=== PATIENT | female | born 1960 | race Caucasian/White ===

== ENCOUNTER 2016-12-08 10:16 | Emergency (ER) | payer BC, OTHER ==
[~2016-12-08] VITALS: Ht 165.1 cm; Wt 94.5 kg
[2016-12-08 10:18] VITALS: BP 149/74; PULSE 80; RESP 20; TEMP 97.9; O2SAT 95
[2016-12-08 10:41] VITALS: RESP 16; O2SAT 98
[2016-12-08] MEDS ORDERED: DAPA1TAB PO (10:41)
[2016-12-08] MEDS ORDERED: LEVO.2 PO (10:41)
[2016-12-08] MEDS ORDERED: MULT1TAB84 PO (10:41)
[2016-12-08] MEDS ORDERED: DULA0.5I SQ (10:41)
[2016-12-08] MEDS ORDERED: [UNRECOGNIZED DRUG - CODE] PO (10:41)
[2016-12-08] MEDS ORDERED: ERGO1CAP10 PO (10:41)
[2016-12-08] MEDS ORDERED: GLUM500T PO (10:41)
[2016-12-08] MEDS ORDERED: LISI-515 PO (10:41)
[2016-12-08] MEDS ORDERED: LIDOCAINE VISCOUS 2% SOLN 15 ML UDC SWISH-SWAL ONE (10:45)
[2016-12-08] MEDS ORDERED: SODIUM CHLORIDE 0.9% FLUSH 5 ML FLUSH IVF PRN (10:45)
[2016-12-08] MEDS ORDERED: ALUMINUM/MAGNESIUM/SIMETH 30 ML CUP PO ONE (10:45)
[2016-12-08] MEDS ORDERED: ATROPINE/SCOPOLAM/HYOSCYAM/PB ELIXIR 10 ML CUP PO ONE (10:45)
[2016-12-08 11:14] LABS: AUTOMATED NEUTROPHIL # 4.5 TH/MM3 (1.8-7.7); BASOPHIL % 0.4 % (0.0-2.0); EOSINOPHIL # 0.2 TH/MM3 (0-0.4); EOSINOPHIL % 2.3 % (0.0-4.0); HEMO FLAGS DIFF FINAL; LYMPH % 25.8 % (9.0-44.0); LYMPHOCYTE # 1.8 TH/MM3 (1.0-4.8); MEAN CELL VOLUME 84.7 FL (80.0-100.0); MEAN CORPUSCULAR HEMOGLOBIN 29.4 PG (27.0-34.0); MEAN CORPUSCULAR HGB CONC 34.7 % (32.0-36.0); MONO % 7.9 % (0.0-8.0); NEUT % 63.6 % (16.0-70.0); PLATELET COUNT 264 TH/MM3 (150-450); RED BLOOD COUNT 4.96 MIL/MM3 (4.00-5.30); RED CELL DISTRIBUTION WIDTH 13.1 % (11.6-17.2)
[2016-12-08 11:31] LABS: ALT (GPT) 37 U/L (10-53); ANION GAP 13 MEQ/L (5-15); AST (GOT) 30 U/L (15-37); BICARBONATE 22.5 MEQ/L (21.0-32.0); BLOOD UREA NITROGEN 8 MG/DL (7-18); CHLORIDE 105 MEQ/L (98-107); GLOMERULAR FILTRATION RATE 73 ML/MIN (>89); POTASSIUM 3.7 MEQ/L (3.5-5.1); SODIUM (NA) 140 MEQ/L (136-145)
[2016-12-08 11:36] LABS: ALKALINE PHOSPHATASE 74 U/L (45-117); TOTAL BILIRUBIN ADULT 0.6 MG/DL (0.2-1.0)
--- NOTE | 2016-12-08 12:07 | PD ---
HPI Chief Complaint: Abdominal Pain Time Seen by Provider: 10:32 Travel History International Travel<30 days: Yes Contact w/Intl Traveler<30days: Yes Name of Country Traveled to: [facility] Traveled to known affect area: No History of Present Illness HPI This is a 56-year-old female who presents to the emergency department with epigastric abdominal discomfort that's been present for 10 days, intermittent, worse immediately after eating described as a burning. She denies any associated nausea, vomiting, fevers or chills. She thinks it's her pancreas and she thinks has pancreatic irritation related to her diabetes. She's never had pancreatitis diagnosed before. She does say that she's had some stools that float. PFSH Past Medical History Cardiovascular Problems: Yes (PT STATES SHE MAY HAVE A BLOCKAGE) Diabetes: Yes (TYPE 2) Patient Takes Glucophage: No Diminished Hearing: No Thyroid Disease: Yes (hypo) Tetanus Vaccination: Unknown Influenza Vaccination: No ?: Not Past Surgical History Cholecystectomy: Yes Social History Alcohol Use: No Tobacco Use: No Substance Use: No Allergies-Medications (Allergen,Severity, Reaction): Coded Allergies: Ancef (Verified Allergy, Intermediate, HIVES, 12/08/16) Reported Meds & Prescriptions Reported Meds & Active Scripts Active Reported Multivitamin Adults (Multiple Vitamins W/ Minerals) 1 Tab 1 Tab PO DAILY Pancreatin 325 Mg Tab 500 Mg PO BID Trulicity Inj (Dulaglutide Inj) 1.5 Mg/0.5 Ml Pen 1.5 Mg SQ Q7D Farxiga (Dapagliflozin) 5 Mg Tab 5 Mg PO DAILY Glumetza (Metformin HCl) 500 Mg Manish 500 Mg PO DAILY With evening meal Vitamin D (Ergocalciferol) 50,000 Unit Cap 35 Units PO Q7D Lisinopril 20 Mg Tab 20 Mg PO DAILY Synthroid (Levothyroxine Sodium) 200 Mcg Tab 200 Mcg PO DAILY Review of Systems Except as stated in HPI: all other systems reviewed are Neg Physical Exam Narrative GENERAL:Well appearing, no acute distress SKIN: Warm and dry. HEAD: Atraumatic. Normocephalic. EYES: Pupils equal and round. No injection or drainage. ENT: Moist mucous membranes NECK: Trachea midline. CARDIOVASCULAR: Regular rate and rhythm. No murmur appreciated. RESPIRATORY: Clear to auscultation. Breath sounds equal bilaterally. GASTROINTESTINAL: Abdomen soft, moderately tender to palpation in the epigastrium with no rebound or guarding. MUSCULOSKELETAL: No obvious deformities. NEUROLOGICAL: Awake and alert. No obvious cranial nerve deficits. Moving all extremities. PSYCHIATRIC: Appropriate mood and affect; insight and judgment normal. Data Data Last Documented VS Vital Signs Date Time Temp Pulse Resp B/P Pulse Ox O2 Delivery O2 Flow Rate FiO2 12/08/16 10:41 16 98 Room Air 12/08/16 10:18 97.9 80 149/74 Orders Complete Blood Count With Diff (12/08/16 10:38) Comprehensive Metabolic Panel (12/08/16 10:38) Lipase (12/08/16 10:38) Urinalysis - C+S If Indicated (12/08/16 10:38) Iv Access Insert/Monitor (12/08/16 10:38) Ecg Monitoring (12/08/16 10:38) Oximetry (12/08/16 10:38) Sodium Chloride 0.9% Flush (Ns Flush) (12/08/16 10:45) Electrocardiogram (12/08/16 10:38) Troponin I (12/08/16 10:38) Al-Mag Hy-Si 40-40-4 Mg/Ml Liq (Mag-Al P (12/08/16 10:45) Lidocaine 2% Viscous (Xylocaine 2% Visco (12/08/16 10:45) Jceey-Tdnryi-Pitbge-Pb Liq ( Liq (12/08/16 10:45) Labs Laboratory Tests Test 12/08/16 10:45 White Blood Count 7.0 TH/MM3 Red Blood Count 4.96 MIL/MM3 Hemoglobin 14.6 GM/DL Hematocrit 42.0 % Mean Corpuscular Volume 84.7 FL Mean Corpuscular Hemoglobin 29.4 PG Mean Corpuscular Hemoglobin 34.7 % Concent Red Cell Distribution Width 13.1 % Platelet Count 264 TH/MM3 Mean Platelet Volume 9.1 FL Neutrophils (%) (Auto) 63.6 % Lymphocytes (%) (Auto) 25.8 % Monocytes (%) (Auto) 7.9 % Eosinophils (%) (Auto) 2.3 % Basophils (%) (Auto) 0.4 % Neutrophils # (Auto) 4.5 TH/MM3 Lymphocytes # (Auto) 1.8 TH/MM3 Monocytes # (Auto) 0.6 TH/MM3 Eosinophils # (Auto) 0.2 TH/MM3 Basophils # (Auto) 0.0 TH/MM3 CBC Comment DIFF FINAL Differential Comment Sodium Level 140 MEQ/L Potassium Level 3.7 MEQ/L Chloride Level 105 MEQ/L Carbon Dioxide Level 22.5 MEQ/L Anion Gap 13 MEQ/L Blood Urea Nitrogen 8 MG/DL Creatinine 0.81 MG/DL Estimat Glomerular Filtration 73 ML/MIN Rate Random Glucose 75 MG/DL Calcium Level 9.4 MG/DL Total Bilirubin 0.6 MG/DL Aspartate Amino Transf 30 U/L (AST/SGOT) Alanine Aminotransferase 37 U/L (ALT/SGPT) Alkaline Phosphatase 74 U/L Troponin I LESS THAN 0.02 NG/ML Total Protein 7.5 GM/DL Albumin 3.9 GM/DL Lipase 126 U/L MDM Medical Decision Making Medical Screen Exam Complete: Yes Emergency Medical Condition: Yes Interpretation(s) afebrile, no tachycardia, moderate hypertension no leukocytosis electrolytes are reassuring lipase 126 urinalysis: no infection Differential Diagnosis gastritis, peptic ulcer disease, pancreatitis, myocardial infarction Narrative Course This is a 56 year old female who presents to the emergency department with epigastric abdominal discomfort for 10 days. She was placed on a monitor and an IV was established. Pt. was given a GI cocktail. Labs are reassuring with a normal lipase. I don't suspect a surgical etiology of her symptoms. I suspect the patient has gastritis. Pt. can follow up with a farm equipment operator as an outpatient. Diagnosis Primary Impression: Gastritis Qualified Code: K29.00 - Acute gastritis without hemorrhage, unspecified gastritis type Patient Instructions: General Instructions Additional Instructions: If you develop severe or worsening abdominal pain, fever>100.4, persistent vomiting or inability to eat or drink return to the emergency department immediately. Follow up with your primary care physician in 1-2 days for a check-up. Med/Other Pt SpecificInfo: Prescription(s) given Scripts Ranitidine (Zantac)150 Mg [id number] Mg PO BID #60 TAB Ref 0 Prov:Terri Rothman MD 12/08/16 Disposition: 01 DISCHARGE HOME Condition: Stable Terri Rothman MD Dec 08, 2016 12:07
[2016-12-08] MEDS ORDERED: ZANT150T2 PO (12:14)
[2016-12-08 12:16] LABS: BLOOD, URINE NEG (NEG); COMMENT (UR) CULT NOT INDICATED; CULTURE IF INDICATED CULT NOT INDICATED; GLUCOSE,URINE 150 mg/dL (NEG); KETONE, URINE 80 mg/dL (NEG); MUCUS URINE FEW /lpf (OCC); NITRITE,URINE NEG (NEG); SQUAMOUS EPITHELIAL CELL URINE <1 /hpf (0-5); URINE COLOR LIGHT-YELLOW (YELLW/STRAW)
--- NOTE | 2016-12-08 21:42 | EKG ---
Date Performed: 12/08/2016 Time Performed: 10:46:22 PTAGE: 56 years EKG: Sinus rhythm MARKED LEFT AXIS DEVIATION MODERATE INTRAVENTRICULAR CONDUCTION DELAY VOLTAGE CRITERIA FOR LVH ABNOR MAL ECG PREVIOUS TRACING : 09/04/2004 08.21 Compared to the previous tracing, IVCD now present DOCTOR: Cresencio Lucio Interpretating Date/Time 12/08/2016 21:40:58
== END 2016-12-08 13:00 | disposition home or self-care (01) ==
LOC: NEPE 10:16
DX: K29.00 Acute gastritis without bleeding (principal); E11.9 Type 2 diabetes mellitus without complications; Z79.84 Long term (current) use of oral hypoglycemic drugs
CPT/HCPCS: 80053; 81001; 83690; 84484; 85025; 93005

== ENCOUNTER 2017-10-09 07:01 | Observation (INO) | payer BC ==
[2017-10-09] VITALS (7 sets, daily range): BP systolic 128–180; BP diastolic 71–95; PULSE 66–78; RESP 16–18; TEMP 97.2–97.8; O2SAT 96–98
[~2017-10-09] VITALS: Ht 166.4 cm; Wt 101.0 kg
[~2017-10-09 07:01] MED LIST: DAPA1TAB PO; DULA0.5I SQ; ERGO1CAP10 PO; GLUM500T PO; LEVO.2 PO; LISI-515 PO; MULT1TAB84 PO; ZANT150T2 PO; [UNRECOGNIZED DRUG - CODE] PO
[2017-10-09] MEDS ORDERED: ASPIRIN 81 MG CHEW TAB PO ONE (07:30)
[2017-10-09] MEDS ORDERED: SODIUM CHLORIDE 0.9% FLUSH 10 ML FLUSH IVF PRN (07:30)
[2017-10-09] MEDS ORDERED: MORPHINE SULFATE 4 MG/ML INJ IV PUSH ONE (07:30)
--- NOTE | 2017-10-09 07:32 | PD ---
HPI Chief Complaint: Chest Pain Time Seen by Provider: 07:13 Travel History International Travel<30 days: No Contact w/Intl Traveler<30days: No Traveled to known affect area: No History of Present Illness HPI Patient is a 57 year old female who comes in complaining of chest pain radiating to her back. She says it woke her up from sleep 4 hours ago. She says she is unable to describe the pain. She says she has never had this pain before. She says the pain has been constant since it started. Nothing seems to make the pain better or worse. She denies shortness of breath, nausea or vomiting. She is concerned about her thyroid. She says she was told her TSH was 12, but her T3 and T4 were normal. She was advised to see endocrinology, but has not done so yet. She believes this is the cause of her pain. PFSH Past Medical History Cardiovascular Problems: Yes (nuc stress test 04/02) Diabetes: Yes Patient Takes Glucophage: Yes Diminished Hearing: No Hypertension: Yes Thyroid Disease: Yes (hypo) Influenza Vaccination: No Tubal Ligation: Yes Past Surgical History Cholecystectomy: Yes Social History Alcohol Use: No Tobacco Use: No Substance Use: No Allergies-Medications (Allergen,Severity, Reaction): Coded Allergies: cefazolin (Unverified Allergy, Intermediate, HIVES, 05/31/17) adhesive tape (Verified Allergy, Unknown, 10/09/17) Reported Meds & Prescriptions Reported Meds & Active Scripts Active Reported Trulicity Inj (Dulaglutide Inj) 1.5 Mg/0.5 Ml Pen 1.5 Mg SQ Q7D Farxiga (Dapagliflozin) 5 Mg Tab 5 Mg PO DAILY Glumetza (Metformin HCl) 500 Mg Manish 500 Mg PO DAILY With evening meal Lisinopril 20 Mg Tab 20 Mg PO DAILY Review of Systems Except as stated in HPI: all other systems reviewed are Neg General / Constitutional: No: Fever, Chills Eyes: No: Blurred Vision HENT: No: Headaches, Lightheadedness Cardiovascular: Positive: Chest Pain or Discomfort Respiratory: No: Cough, Shortness of Breath Gastrointestinal: No: Nausea, Vomiting Musculoskeletal: No: Myalgias, Edema Skin: No Rash, No Change in Pigmentation Neurologic: No: Weakness, Dizziness Physical Exam Narrative GENERAL: Awake and alert, in no acute distress. SKIN: Focused skin assessment warm/dry. HEAD: Atraumatic. Normocephalic. EYES: Pupils equal and round. No scleral icterus. EOMI. ENT: Mucous membranes pink and moist. NECK: Trachea midline. No JVD. CARDIOVASCULAR: Regular rate and rhythm. No murmur appreciated. RESPIRATORY: No accessory muscle use. Clear to auscultation. Breath sounds equal bilaterally. GASTROINTESTINAL: Abdomen soft, non-tender, nondistended. MUSCULOSKELETAL: No obvious deformities. No clubbing. No cyanosis. No edema. No calf tenderness. NEUROLOGICAL: Awake and alert. No obvious cranial nerve deficits. Motor grossly within normal limits. Normal speech. PSYCHIATRIC: Appropriate mood and affect; insight and judgment normal. Data Data Last Documented VS Vital Signs Date Time Temp Pulse Resp B/P (MAP) Pulse Ox O2 Delivery O2 Flow Rate FiO2 10/09/17 07:39 142/78 (99) 141/82 (101) 10/09/17 07:20 97 Room Air 10/09/17 07:16 97.8 74 16 Orders Orders Complete Blood Count With Diff (10/09/17 07:18) Comprehensive Metabolic Panel (10/09/17 07:18) Prothrombin Time / Inr (Pt) (10/09/17 07:18) Act Partial Throm Time (Ptt) (10/09/17 07:18) Troponin I (10/09/17 07:18) Lipase (10/09/17 07:18) Chest, Single Ap (10/09/17 07:18) Ecg Monitoring (10/09/17 07:18) Bilateral Bp Monitoring (10/09/17 07:18) Iv Access Insert/Monitor (10/09/17 07:18) Oximetry (10/09/17 07:18) Oxygen Administration (10/09/17 07:18) Aspirin Chew (Aspirin Chew) (10/09/17 07:30) Morphine Inj (Morphine Inj) (10/09/17 07:30) Sodium Chloride 0.9% Flush (Ns Flush) (10/09/17 07:30) Thyroid Stimulating Hormone (10/09/17 07:18) Free T3 (10/09/17 07:18) Thyroxine (T4) (10/09/17 07:18) Electrocardiogram (10/09/17 07:09) Admit Order (Ed Use Only) (10/09/17 ) Labs Laboratory Tests Test 10/09/17 07:36 White Blood Count 7.0 TH/MM3 Red Blood Count 4.58 MIL/MM3 Hemoglobin 13.3 GM/DL Hematocrit 39.4 % Mean Corpuscular Volume 86.1 FL Mean Corpuscular Hemoglobin 29.0 PG Mean Corpuscular Hemoglobin Concent 33.7 % Red Cell Distribution Width 12.7 % Platelet Count 247 TH/MM3 Mean Platelet Volume 7.9 FL Neutrophils (%) (Auto) 53.8 % Lymphocytes (%) (Auto) 34.1 % Monocytes (%) (Auto) 7.7 % Eosinophils (%) (Auto) 4.0 % Basophils (%) (Auto) 0.4 % Neutrophils # (Auto) 3.8 TH/MM3 Lymphocytes # (Auto) 2.4 TH/MM3 Monocytes # (Auto) 0.5 TH/MM3 Eosinophils # (Auto) 0.3 TH/MM3 Basophils # (Auto) 0.0 TH/MM3 CBC Comment DIFF FINAL Differential Comment Prothrombin Time 9.6 SEC Prothromb Time International Ratio 0.9 RATIO Activated Partial Thromboplast Time 27.9 SEC Blood Urea Nitrogen 8 MG/DL Creatinine 0.78 MG/DL Random Glucose 117 MG/DL Total Protein 7.0 GM/DL Albumin 3.2 GM/DL Calcium Level 8.3 MG/DL Alkaline Phosphatase 89 U/L Aspartate Amino Transf (AST/SGOT) 20 U/L Alanine Aminotransferase (ALT/SGPT) 18 U/L Total Bilirubin 0.4 MG/DL Sodium Level 139 MEQ/L Potassium Level 3.3 MEQ/L Chloride Level 103 MEQ/L Carbon Dioxide Level 29.9 MEQ/L Anion Gap 6 MEQ/L Estimat Glomerular Filtration Rate 76 ML/MIN Magnesium Level 2.0 MG/DL Troponin I LESS THAN 0.02 NG/ML Lipase 131 U/L Thyroxine (T4) 5.9 MCG/DL Free Triiodothyronine (T3) pg/dL 2.38 PG/ML Thyroid Stimulating Hormone 3rd Gen 18.300 uIU/ML MDM Medical Decision Making Medical Screen Exam Complete: Yes Emergency Medical Condition: Yes Medical Record Reviewed: Yes Interpretation(s) ECG shows NSR at 76, no ST elevation or depression, LVH. Differential Diagnosis ACS vs pneumonia vs pancreatitis Narrative Course Patient is a 57 year old female who comes in complaining of chest pain that radiates to her back. Exam shows no acute abnormalities. IV established, labs sent. Given Aspirin. Labs show elevated TSH, but T3 and T4 within normal limits (this is know to patient, not a new finding). Troponin is negative. CXR shows no acute abnormalities. Placed in chest pain center for further management. Diagnosis Primary Impression: Chest pain Qualified Codes: R07.9 - Chest pain, unspecified Admitting Information Admitting Physician Requests: Loree Freire MD Oct 09, 2017 07:32
[2017-10-09 07:43] LABS: AUTOMATED NEUTROPHIL # 3.8 TH/MM3 (1.8-7.7); BASOPHIL % 0.4 % (0.0-2.0); EOSINOPHIL # 0.3 TH/MM3 (0-0.4); HEMATOCRIT 39.4 % (35.0-46.0); HEMOGLOBIN 13.3 GM/DL (11.6-15.3); LYMPH % 34.1 % (9.0-44.0); LYMPHOCYTE # 2.4 TH/MM3 (1.0-4.8); MEAN CELL VOLUME 86.1 FL (80.0-100.0); MEAN CORPUSCULAR HGB CONC 33.7 % (32.0-36.0); MEAN PLATELET VOLUME 7.9 FL (7.0-11.0); MONO % 7.7 % (0.0-8.0); MONOCYTE # 0.5 TH/MM3 (0-0.9); NEUT % 53.8 % (16.0-70.0); PLATELET COUNT 247 TH/MM3 (150-450); RED BLOOD COUNT 4.58 MIL/MM3 (4.00-5.30); RED CELL DISTRIBUTION WIDTH 12.7 % (11.6-17.2)
[2017-10-09 07:51] LABS: CHLORIDE 103 MEQ/L (98-107); SODIUM (NA) 139 MEQ/L (136-145)
[2017-10-09 07:55] LABS: ALBUMIN 3.2 GM/DL (3.4-5.0); BICARBONATE 29.9 MEQ/L (21.0-32.0); BLOOD UREA NITROGEN 8 MG/DL (7-18); CALCIUM 8.3 MG/DL (8.5-10.1); GLUCOSE,RANDOM 117 MG/DL (74-106); LIPASE 131 U/L (73-393)
[2017-10-09 07:56] LABS: INTERNATIONAL NORMALIZED RATIO 0.9 RATIO; PROTHROMBIN TIME - PATIENT 9.6 SEC (9.8-11.6)
[2017-10-09 07:58] LABS: ALT (GPT) 18 U/L (10-53); AST (GOT) 20 U/L (15-37); CREATININE 0.78 MG/DL (0.50-1.00); GLOMERULAR FILTRATION RATE 76 ML/MIN (>89)
--- NOTE | 2017-10-09 07:59 | RADRPT ---
EXAM DATE/TIME: 10/09/2017 07:24 [facility] COMPARISON: No previous studies available for comparison. INDICATIONS : Chest pain MEDICAL HISTORY : Diabetes mellitus type II. SURGICAL HISTORY : None. ENCOUNTER: Initial ACUITY: 1 day PAIN SCORE: 5/10 LOCATION: Bilateral chest FINDINGS: There is mild interstitial prominence with minimal cardiomegaly. There is either consolidation or pl eural effusion.. Osseous structures are intact. CONCLUSION: Mild interstitial prominence Jose Kirk MD FACR on October 09, 2017 at 7:57 Board Certified Radiologist. This report was verified electronically.
[2017-10-09 08:00] LABS: TOTAL BILIRUBIN ADULT 0.4 MG/DL (0.2-1.0)
[2017-10-09 08:01] LABS: ALKALINE PHOSPHATASE 89 U/L (45-117)
[2017-10-09 08:03] LABS: TROPONIN I LESS THAN 0.02 NG/ML (0.02-0.05)
[2017-10-09] MEDS ORDERED: SODIUM CHLOR 0.9% 1000 ML INJ 1,000 ML IV SCH (09:09)
[2017-10-09] MEDS ORDERED: REGADENOSON INJ 0.4 MG/5 ML SYR IV ONE (09:12)
[2017-10-09] MEDS ORDERED: ACETAMINOPHEN 500 MG CPLT PO PRN (09:15)
[2017-10-09] MEDS ORDERED: SODIUM CHLORIDE 0.9% FLUSH 10 ML FLUSH IV FLUSH PRN (09:15)
[2017-10-09] MEDS ORDERED: MORPHINE SULFATE 2 MG/ML INJ IV PRN (09:15)
[2017-10-09] MEDS ORDERED: ONDANSETRON HCL 4 MG/2 ML VIAL IV PUSH PRN (09:15)
[2017-10-09 09:39] LABS: THYROXINE (T4) 5.9 MCG/DL (4.8-13.9)
[2017-10-09 09:48] LABS: FREE T3 2.38 PG/ML (2.18-3.98)
--- NOTE | 2017-10-09 10:50 | HHI.HP ---
HPI Service [facility] Primary Care Physician No Primary Care Physician Admission Diagnosis Chest Pain Diagnoses: Chief Complaint: Epigastric chest pain Travel History International Travel<30 Days: No Contact w/Intl Traveler <30 Da: No Traveled to Known Affected Are: No History of Present Illness Ms. Vincent is a pleasant 57-year-old female with a history of hypothyroidism, hypertension, diabetes mellitus who presents to the emergency department on 10/09/2017 due to epigastric chest pain radiating to her back. Her pain woke her up around 4 AM this morning. Her pain has subsided after taking aspirin but still persistent. Patient denies any radiation of her pain to neck, jaw, arms. She also denies any nausea vomiting or diaphoresis. Patient denies any headache, vision changes, cough, fever or chills. She denies any abdominal pain, dysuria or hematuria. Review of Systems Except as stated in HPI: all other systems reviewed are Neg Past Family Social History Past Medical History Diabetes mellitus, hypertension, hypothyroidism Past Surgical History Cholecystectomy, tubal ligation Reported Medications Trulicity Inj (Dulaglutide Inj) 1.5 Mg/0.5 Ml Pen 1.5 Mg SQ Q7D Farxiga (Dapagliflozin) 5 Mg Tab 5 Mg PO DAILY Glumetza (Metformin HCl) 500 Mg Manish 500 Mg PO DAILY With evening meal Lisinopril 20 Mg Tab 20 Mg PO DAILY Allergies: Coded Allergies: cefazolin (Unverified Allergy, Intermediate, HIVES, 05/31/17) adhesive tape (Verified Allergy, Unknown, 10/09/17) Family History Dad - Pancreatic cancer Sister - Pancreatic cancer Mom - Alzheimer's, [place]. Social History Denies using tobacco, alcohol, illicit drugs. Physical Exam Vital Signs Vital Signs Date Time Temp Pulse Resp B/P (MAP) Pulse Ox O2 Delivery O2 Flow Rate FiO2 10/09/17 07:39 142/78 (99) 141/82 (101) 10/09/17 07:20 97 Room Air 10/09/17 07:16 97.8 74 16 180/95 (123) 98 Physical Exam GENERAL: This is a well-nourished, well-developed patient, in no apparent distress. SKIN: No rashes, ecchymoses or lesions. Warm and dry. HEAD: Atraumatic. Normocephalic. No temporal or scalp tenderness. EYES: Pupils equal round and reactive. No injection or drainage. ENT: Nose without bleeding, purulent drainage or septal hematoma. Airway patent. NECK: Trachea midline. No lymphadenopathy. Supple, nontender, no meningeal signs. CARDIOVASCULAR: Regular rate and rhythm without murmurs, gallops, or rubs. No JVD. RESPIRATORY: Clear to auscultation. Breath sounds equal bilaterally. No wheezes , rales, or rhonchi. GASTROINTESTINAL: Abdomen soft, non-tender, nondistended. No guarding. There is mild epigastric pain on palpation. MUSCULOSKELETAL: Extremities without clubbing, cyanosis, or edema. NEUROLOGICAL: Awake and alert. Cranial nerves II through XII intact. No focal neurological deficits. Normal speech. Laboratory Laboratory Tests Test 10/09/17 07:36 White Blood Count 7.0 Red Blood Count 4.58 Hemoglobin 13.3 Hematocrit 39.4 Mean Corpuscular Volume 86.1 Mean Corpuscular Hemoglobin 29.0 Mean Corpuscular Hemoglobin Concent 33.7 Red Cell Distribution Width 12.7 Platelet Count 247 Mean Platelet Volume 7.9 Neutrophils (%) (Auto) 53.8 Lymphocytes (%) (Auto) 34.1 Monocytes (%) (Auto) 7.7 Eosinophils (%) (Auto) 4.0 Basophils (%) (Auto) 0.4 Neutrophils # (Auto) 3.8 Lymphocytes # (Auto) 2.4 Monocytes # (Auto) 0.5 Eosinophils # (Auto) 0.3 Basophils # (Auto) 0.0 CBC Comment DIFF FINAL Differential Comment Prothrombin Time 9.6 Prothromb Time International Ratio 0.9 Activated Partial Thromboplast Time 27.9 Blood Urea Nitrogen 8 Creatinine 0.78 Random Glucose 117 Total Protein 7.0 Albumin 3.2 Calcium Level 8.3 Alkaline Phosphatase 89 Aspartate Amino Transf (AST/SGOT) 20 Alanine Aminotransferase (ALT/SGPT) 18 Total Bilirubin 0.4 Sodium Level 139 Potassium Level 3.3 Chloride Level 103 Carbon Dioxide Level 29.9 Anion Gap 6 Estimat Glomerular Filtration Rate 76 Magnesium Level 2.0 Troponin I LESS THAN 0.02 Lipase 131 Thyroxine (T4) 5.9 Free Triiodothyronine (T3) pg/dL 2.38 Thyroid Stimulating Hormone 3rd Gen 18.300 Result Diagram: 10/09/1773510/09/17735 Imaging Last Impressions Chest X-Ray 10/09/17717 Signed Impressions: Service Date/Time: Monday, October 09, 2017 07:24 - CONCLUSION: Mild interstitial prominence Jose Kirk MD FACR Caprini VTE Risk Assessment Caprini VTE Risk Assessment: No/Low Risk (score <= 1) Caprini Risk Assessment Model Point Value = 1 Point Value = 2 Point Value = 3 Point Value = 5 Age 41-60 Minor surgery BMI > 25 kg/m2 Swollen legs Varicose veins or History of unexplained or recurrent spontaneous Oral contraceptives or hormone replacement Sepsis (< 1 month) Serious lung disease, including pneumonia (< 1 month) Abnormal pulmonary function Acute myocardial infarction Congestive heart failure (< 1 month) History of inflammatory bowel disease Medical patient at bed rest Age 61-74 Arthroscopic surgery Major open surgery (> 45 min) Laparoscopic surgery (> 45 min) Malignancy Confined to bed (> 72 hours) Immobilizing plaster cast Central venous access Age >= 75 History of VTE Family history of VTE Factor V Leiden Prothrombin [id number] Lupus anticoagulant Anticardiolipin antibodies Elevated serum homocysteine Heparin-induced thrombocytopenia Other congenital or acquired thrombophilia Stroke (< 1 month) Elective arthroplasty Hip, pelvis, or leg fracture Acute spinal cord injury (< 1 month) Prophylaxis Regimen Total Risk Factor Score Risk Level Prophylaxis Regimen 0-1 Low Early ambulation 2 Moderate Order ONE of the following: *Sequential Compression Device (SCD) *Heparin 5000 units SQ BID 3-4 Higher Order ONE of the following medications: *Heparin 5000 units SQ TID *Enoxaparin/Lovenox 40 mg SQ daily (WT < 150 kg, CrCl > 30 mL/min) *Enoxaparin/Lovenox 30 mg SQ daily (WT < 150 kg, CrCl > 10-29 mL/min) *Enoxaparin/Lovenox 30 mg SQ BID (WT < 150 kg, CrCl > 30 mL/min) AND/OR *Sequential Compression Device (SCD) 5 or more Highest Order ONE of the following medications: *Heparin 5000 units SQ TID (Preferred with Epidurals) *Enoxaparin/Lovenox 40 mg SQ daily (WT < 150 kg, CrCl > 30 mL/min) *Enoxaparin/Lovenox 30 mg SQ daily (WT < 150 kg, CrCl > 10-29 mL/min) *Enoxaparin/Lovenox 30 mg SQ BID (WT < 150 kg, CrCl > 30 mL/min) AND *Sequential Compression Device (SCD) Assessment and Plan Problem List: (1) Chest pain ICD Code: R07.9 - Chest pain, unspecified (2) Hypertension ICD Code: I10 - Essential (primary) hypertension (3) Diabetes mellitus ICD Code: E11.9 - Type 2 diabetes mellitus without complications (4) Hypothyroidism ICD Code: E03.9 - Hypothyroidism, unspecified Assessment and Plan Ms. Vincent is a pleasant 57-year-old female with a history of hypertension, vasculitis, hypothyroidism who presents to the emergency department due to epigastric chest pain with radiation to the back. No nausea vomiting, diaphoresis. - Chest pain - Atypical presentation. EKGs reviewed by me shows T wave inversions in lead 3 and aVF. - Discussed with cardiology who recommended a nuclear stress test with adenosine. - If troponins are elevated or abnormal stress test we'll consult cardiology and possibly transfer patient to the main hospital. - Discussed with patient regarding aspirin and statin. She has not been able to tolerate statin in the past. Taking aspirin upsets her stomach. - If stress test is negative, we'll consider PPI for 4 weeks and possibly aspirin 81 mg daily as well. - Diabetes mellitus - We'll hold all oral hypoglycemics. Continue sliding scale insulin. - Hypertension - continue lisinopril 20 mg daily. - Mild hypokalemia - will replace with oral KCl. - Hypothyroidism - patient was on levothyroxine for 30 years. She is currently not on levothyroxine. She is is scheduled to see an house decorator in the outpatient setting. Full code. Ambulation Dallin Samuel DO Oct 09, 2017 10:50 am
[2017-10-09 11:23] LABS: TROPONIN I LESS THAN 0.02 NG/ML (0.02-0.05)
[2017-10-09] MEDS ORDERED: GLUCAGON 1 MG/ML VIAL OTHER PRN (12:15)
[2017-10-09] MEDS ORDERED: DEXTROSE 50% IN WATER 50 ML VIAL(D50) IV PUSH PRN (12:15)
[2017-10-09] MEDS ORDERED: POTASSIUM CHLORIDE 20 MEQ CONTROLLED RELEASE TAB PO ONE (13:00)
--- NOTE | 2017-10-09 14:30 | TR ---
Date Performed: 10/09/2017 Time Performed: 13:50:51 DOCTOR: Johnathon Cooper DRUG LIST: CLINICAL HISTORY: REASON FOR TEST: Chest pain REASON FOR ENDING: OBSERVATION: CONCLUSION: Lexiscan stress test was performed under standard four minute protocol. Radionuclid e was injected one minute prior to ending the test. No electrocardiographic abormalities were present to suggest ischemia. Nuclear imaging and interpretation are pending. COMMENTS:
--- NOTE | 2017-10-09 14:33 | HHI.DCPOC ---
Discharge Care Plan Diagnosis: (1) Chest pain Goals to Promote Your Health * To prevent worsening of your condition and complications * To maintain your health at the optimal level Directions to Meet Your Goals Take your medications as prescribed Follow your dietary instruction Follow activity as directed Keep your appointments as scheduled Take your immunizations and boosters as scheduled If your symptoms worsen call your PCP, if no PCP go to Urgent Care Center or Emergency Room Smoking is Dangerous to Your Health. Avoid second hand smoke Call the 24-hour hour crisis hotline for domestic abuse at Justino Mireles Oct 09, 2017 14:33
--- NOTE | 2017-10-09 14:39 | RADRPT ---
EXAM DATE/TIME: 10/09/2017 13:23 [facility] COMPARISON: No previous studies available for comparison. INDICATIONS : Chest pain radiating to the back. Abnormal EKG. DOSE: 35 mCi Tc99m Myoview at stress. 11 mCi Tc99m Myoview at rest. 0.4 mg Lexiscan STRESS SYMPTOMS: Tingling and dizziness. EJECTION FRACTION: 69% MEDICAL HISTORY : Diabetes mellitus type 2. Hypertension. SURGICAL HISTORY : Tubal ligation. ENCOUNTER: Initial ACUITY: 1 day PAIN SCALE: 7/10 LOCATION: chest TECHNIQUE: The patient underwent pharmacologic stress with infusion of prescribed dose. Continuous ECG tracing was monitored during stress. Gated SPECT imaging was performed after stress and conventional SPECT i maging was performed at rest. The examination was performed on a SPECT/CT scanner, both attenuation and non-corrected datasets were reviewed. FINDINGS: DISTRIBUTION: Perfusion is better at stress in all projections. There is no redistribution to suggest stress-induc ed ischemia. PERFUSION STUDY: The pattern of perfusion at stress is within normal limits. GATED STUDY: There is intact wall motion and thickening without hypokinetic or dyskinetic segments. CONCLUSION: Negative for stress-induced ischemia. Ejection fraction 69%. RISK CATEGORY: Low (<1% Annual Mortality Rate) Jose Kirk MD FACR on October 09, 2017 at 14:37 Board Certified Radiologist. This report was verified electronically.
[2017-10-09] MEDS ORDERED: PROT40TA PO (15:49)
[2017-10-09] MEDS ORDERED: ASPI81TA23 PO (15:49)
[2017-10-09] MEDS ORDERED: INSULIN ASPART SUPPLEMENTAL SCALE SQ SCH (17:00)
--- NOTE | 2017-10-09 18:11 | EKG ---
Date Performed: 10/09/2017 Time Performed: 10:45:31 PTAGE: 57 years EKG: Sinus rhythm WITH FIRST DEGREE AV BLOCK MARKED LEFT AXIS DEVIATION LAFB VOLTAGE CRITERIA FOR LVH ABNORMAL ECG PREVIOUS TRACING : 10/09/2017 07.09 Compared to prior tracing no significant change DOCTOR: Cresencio Lucio Interpretating Date/Time 10/09/2017 18:10:12
--- NOTE | 2017-10-09 18:25 | EKG ---
Date Performed: 10/09/2017 Time Performed: 07:09:27 PTAGE: 57 years EKG: Sinus rhythm MARKED LEFT AXIS DEVIATION VOLTAGE CRITERIA FOR LVH ABNORMAL ECG NO PREVIOUS TRACING DOCTOR: Cresencio Lucio Interpretating Date/Time 10/09/2017 18:24:40
[2017-10-09] MEDS ORDERED: POTASSIUM CHLORIDE 20 MEQ CONTROLLED RELEASE TAB PO SCH (21:00)
[2017-10-09] MEDS ORDERED: SODIUM CHLORIDE 0.9% FLUSH 10 ML FLUSH IV FLUSH SCH (21:00)
[2017-10-10] MEDS ORDERED: LISINOPRIL 20 MG TAB PO SCH (09:00)
== END 2017-10-09 16:27 | disposition home or self-care (01) ==
LOC: PHED 07:01 → PHEDA 09:11 → PH3B 10:20
PROVIDERS: ADMIT Hospitalist; ATTEND Hospitalist
DX: R07.9 Chest pain, unspecified (principal); I10 Essential (primary) hypertension; E87.6 Hypokalemia; R94.31 Abnormal electrocardiogram [ECG] [EKG]; E03.9 Hypothyroidism, unspecified; E11.9 Type 2 diabetes mellitus without complications; Z79.4 Long term (current) use of insulin; Z79.899 Other long term (current) drug therapy
CPT/HCPCS: 71010; 78452; 80053; 82550; 82552; 83690; 83735; 84436; 84443; 84481; 84484; 85025; 85610; 85730; 93005; 93017; 99285; A9502; G0378; J2785; J7030